=== PATIENT | male | born 1990 | race Two or more races ===

== ENCOUNTER 2018-02-20 15:20 | Emergency (ER) | payer SELFPAY ==
[~2018-02-20] VITALS: Ht 180.3 cm; Wt 87.0 kg
[2018-02-20 16:13] VITALS: BP 129/89
== END 2018-02-20 20:08 | disposition left against medical advice (07) ==
LOC: ER 15:20
DX: H57.12 Ocular pain, left eye (principal); Z53.21 Procedure and treatment not carried out due to patient leaving prior to being seen by health care provider

== ENCOUNTER 2018-03-06 21:34 | Emergency (ER) | payer SELFPAY ==
[~2018-03-06] VITALS: Ht 180.3 cm; Wt 102.0 kg
[2018-03-06 22:13] VITALS: BP 149/95
== END 2018-03-06 21:47 | disposition left against medical advice (07) ==
LOC: ER 21:34
DX: Z53.21 Procedure and treatment not carried out due to patient leaving prior to being seen by health care provider (principal)

== ENCOUNTER 2018-03-19 16:01 | Emergency (ER) | payer SELFPAY ==
[~2018-03-19] VITALS: Ht 182.9 cm; Wt 100.0 kg
[2018-03-19 16:18] VITALS: BP 145/80
[2018-03-19] MEDS ORDERED: DORZ10DR8 OP (16:22)
[2018-03-19] MEDS ORDERED: BRIM15DR8 OP (16:22)
[2018-03-19] MEDS ORDERED: LATA2.5D2 OP (16:22)
[2018-03-19] MEDS ORDERED: PRED10TA PO (16:22)
== END 2018-03-19 17:30 | disposition left against medical advice (07) ==
LOC: ER 16:01
DX: H53.8 Other visual disturbances (principal); Z53.21 Procedure and treatment not carried out due to patient leaving prior to being seen by health care provider

== ENCOUNTER 2018-04-29 17:36 | Emergency (ER) | payer MEDICAID ==
[~2018-04-29] VITALS: Ht 180.3 cm; Wt 96.0 kg
[~2018-04-29 17:36] MED LIST: BRIM15DR8 OP; DORZ10DR8 OP; LATA2.5D2 OP; PRED10TA PO
[2018-04-30 02:07] VITALS: BP 140/88
== END 2018-04-30 01:29 | disposition home or self-care (01) ==
LOC: ER 18:02
DX: H10.33 Unspecified acute conjunctivitis, bilateral (principal); H40.1132 Primary open-angle glaucoma, bilateral, moderate stage; H40.9 Unspecified glaucoma; H53.8 Other visual disturbances; F12.10 Cannabis abuse, uncomplicated; F17.200 Nicotine dependence, unspecified, uncomplicated; Z79.899 Other long term (current) drug therapy
CPT/HCPCS: 99283